=== PATIENT | male | born 1995 | race Two or more races ===

== ENCOUNTER 2017-08-04 19:41 | Emergency (ER) | payer BC, OTHER ==
[~2017-08-04] VITALS: Ht 188 cm; Wt 99.8 kg
[2017-08-04 23:30] VITALS: BP 135/94
== END 2017-08-05 01:42 | disposition home or self-care (01) ==
LOC: EDBD 19:41 → ER 19:50
DX: S06.0X1A Concussion with loss of consciousness of 30 minutes or less, initial encounter (principal); F19.10 Other psychoactive substance abuse, uncomplicated; M54.2 Cervicalgia; M54.89 Other dorsalgia; J45.909 Unspecified asthma, uncomplicated; Z88.1 Allergy status to other antibiotic agents; V43.52XA Car driver injured in collision with other type car in traffic accident, initial encounter; Y93.89 Activity, other specified; Y99.8 Other external cause status; Y92.488 Other paved roadways as the place of occurrence of the external cause
CPT/HCPCS: 70450; 71046; 72125

== ENCOUNTER 2021-06-25 23:08 | Emergency (ER) | payer OTHER ==
[~2021-06-25] VITALS: Ht 188 cm; Wt 94.3 kg
[2021-06-26 00:10] LABS: Basophils # (auto) 0 10 ^3/uL (0-0.2); Basophils % (auto) 0.4 % (0.0-2.0); Eosinophils # (auto) 0.2 10 ^3/uL (0-0.8); Eosinophils % (auto) 2.8 % (0.0-7.0); Hematocrit 43.2 % (41.0-53.0); Lymphocytes % (auto) 30.3 % (10.0-50.0); Mean Corpuscular Hemoglobin 31.5 pg (28.0-32.0); Mean Corpuscular Hgb Conc. 34.7 g/dL (32.0-36.0); Monocytes # (auto) 0.3 10 ^3/uL (0-1.3); Monocytes % (auto) 5.2 % (0.0-12.0); Neutrophils # (auto) 4.1 10 ^3/uL (1.6-8.6); Neutrophils % (auto) 61.3 % (37.0-80.0); Nucleated Red Blood Cells % 0.1 %; Red Blood Cells 4.75 10^6/uL (4.5-5.90); Red Cell Distribution Width 13.5 % (11.8-14.3); White Blood Cell 6.7 10^3/uL (4.4-10.8)
[2021-06-26 00:14] LABS: Albumin 3.9 g/dL (3.4-5.0); Anion Gap 6 (5-15); Blood Alcohol < 3.0 mg/dL (0-5); Blood Urea Nitrogen 11 mg/dL (7-18); Calcium 8.8 mg/dL (8.5-10.1); Carbon Dioxide 27 mmol/L (21-32); Chloride 106 mmol/L (98-107); Glucose 129 mg/dL (74-106); Magnesium 2.3 mg/dL (1.6-2.6); Potassium 3.5 mmol/L (3.5-5.1); Sodium 139 mmol/L (136-145)
[2021-06-26 00:15] LABS: Acetaminophen < 2.0 ug/mL (10-30); Salicylate < 1.7 mg/dL (2.8-20.0)
[2021-06-26 00:16] LABS: Alanine Aminotransferase 30 U/L (16-61); Aspartate Aminotransferase 14 U/L (15-37); BUN/Creatinine Ratio 13.1; GFR African American 146 mL/min; GFR Non-African American 120 mL/min
[2021-06-26 00:18] LABS: Alkaline Phosphatase 58 U/L (45-117); Bilirubin, Total 0.4 mg/dL (0.2-1.0); Total Protein 6.8 g/dL (6.4-8.2)
[2021-06-26 05:58] VITALS: BP 125/86
== END 2021-06-26 06:04 | disposition home or self-care (01) ==
LOC: EDBD 23:08 → EDUNIT# 23:08 → ER 23:08
DX: T43.211A Poisoning by selective serotonin and norepinephrine reuptake inhibitors, accidental (unintentional), initial encounter (principal); G47.00 Insomnia, unspecified; J45.909 Unspecified asthma, uncomplicated; Y92.89 Other specified places as the place of occurrence of the external cause
CPT/HCPCS: 36415; 80053; 80320; 80329; 83735; 84100; 85025; 93005

== ENCOUNTER → 2021-12-03 | Emergency (ER) | payer OTHER | END | disposition left against medical advice (07) | LOC: ER 19:05 | DX: B83.9 Helminthiasis, unspecified (principal); Z53.21 Procedure and treatment not carried out due to patient leaving prior to being seen by health care provider ==

== ENCOUNTER 2022-05-23 17:32 | Emergency (ER) | payer OTHER ==
[~2022-05-23] VITALS: Ht 188 cm; Wt 94.0 kg
[2022-05-23 18:00] VITALS: BP 132/88
== END 2022-05-23 20:19 | disposition home or self-care (01) ==
LOC: ER 17:32
DX: S09.90XA Unspecified injury of head, initial encounter (principal); F17.210 Nicotine dependence, cigarettes, uncomplicated; Z88.1 Allergy status to other antibiotic agents; W23.0XXA Caught, crushed, jammed, or pinched between moving objects, initial encounter; Y93.89 Activity, other specified; Y92.89 Other specified places as the place of occurrence of the external cause; Y99.0 Civilian activity done for income or pay
CPT/HCPCS: 70450

== ENCOUNTER 2025-01-12 16:06 | Emergency (ER) | payer MEDICAID, OTHER ==
[~2025-01-12] VITALS: Ht 185.4 cm; Wt 120.5 kg
[2025-01-12 16:09] VITALS: TEMP 98.3
[2025-01-12 16:36] LABS: Hematocrit 48.4 % (41.0-53.0); Hemoglobin 16.5 g/dL (13.5-17.5); Mean Corpuscular Hemoglobin 30.6 pg (28.0-32.0); Mean Corpuscular Volume 89.5 fL (80.0-100.0); Nucleated Red Blood Cells % 0.1 %
[2025-01-12 16:54] LABS: Alkaline Phosphatase 75 U/L (46-116); Anion Gap 11 (5-15); BUN/Creatinine Ratio 9.2 (10.0-20.0); Calcium 9.9 mg/dL (8.7-10.4); Carbon Dioxide 26 mmol/L (20-31); Chloride 106 mmol/L (98-107); Glucose 94 mg/dL (74-106); Magnesium 2.1 mg/dL (1.6-2.6); Potassium 3.9 mmol/L (3.5-5.1); Sodium 143 mmol/L (136-145); Total Protein 7.6 g/dL (5.7-8.2)
[2025-01-12 16:55] LABS: Bilirubin, Total 0.4 mg/dL (0.2-1.0)
[2025-01-12 16:56] LABS: Alanine Aminotransferase 86 U/L (7-40); Albumin 5.0 g/dL (3.2-4.8); Blood Urea Nitrogen 8 mg/dL (9-23)
--- NOTE | 2025-01-12 17:06 | ED.PDOC ---
History of Present Illness HPI Comments 29-year-old obese male, with a history of suicide and self-harm, presents with chief complaint of suicidal ideations, auditory hallucinations, and self-harm.. Patient reports being suicidal since January 10, 2025, following initial unprovoked onset. Endorsement of plan on ending his life via walking into oncoming traffic. Patient has pre continuous laceration lines on his right forearm from most recent attempt at harming himself. He reports being compliant with his psychiatric medications. Auditory hallucinations were reported as voices endorsing on the patient to harm himself. Denies having any homicidal ideations, visualized hallucination, or further associated symptoms. Chief Complaint: Suicidal Time Seen by MD: 16:20 Primary Care Provider: LAKISHA Boston Notes: Nurses Notes, Medications, Allergies Allergies: Coded Allergies: Amoxicillin (Verified Allergy, Unknown, 08/04/17) Uncoded Allergies: ZITHROMIACIN (Allergy, Unknown, 08/04/17) Information Source: Patient Mode of Arrival: Ambulatory Severity: Moderate Timing: Hours Duration: Since onset Prehospital treatment: None Past Medical History PAST MEDICAL HISTORY: High Lipids, HTN Past Medical History (Other): Arrhythmia Suicide ideations and attempts History of self-harm Surgical History: Denies all surgeries Family History Family History: Reviewed,noncontributory to illness Social History Smoker: Cigarettes Alcohol: Occasionally Drugs: Marijuana Lives In: Home All Other Systems: Reviewed and Negative (Comprehensive review of systems are negative unless otherwise stated in HPI) Physical Exam General Appearance: Moderate Distress HEENT: Normal ENT Inspection, Pharynx Normal, TMs Normal Neck: Full Range of Motion, Non-Tender, Normal, Normal Inspection Respiratory: Chest Non-Tender, Lungs Clear, No Accessory Muscle Use, No Respiratory Distress, Normal Breath Sounds Cardiovascular: No Edema, No JVD, No Murmur, No Gallop, Normal Peripheral Pulses, Regular Rate/Rhythm Breast Exam: Deferred Gastrointestinal: No Organomegaly, Non Tender, No Pulsatile Mass, Normal Bowel Sounds, Soft Genitalia: Deferred Pelvic: Deferred Rectal: Deferred Extremities: No calf tenderness, Normal capillary refill, Normal inspection, Normal range of motion, Non-tender, No pedal edema Musculoskeletal : Apperance: Normal Neurologic: Alert, 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 Was a procedure done?: No Differential Dx Considerations may include: Suicide, depression, hopelessness, anxiety, medication noncompliance, schizoaffective disorder, among others X-Ray, Labs, Meds, VS Vital Signs Date Time Temp Pulse Resp B/P (MAP) Pulse Ox O2 Delivery O2 Flow Rate FiO2 01/12/25 16:09 98.3 102 16 137/93 98 98.3 Lab Test 01/12/25 16:28 Range/Units White Blood Count 11.5 H 4.4-10.8 10^3/uL Red Blood Count 5.40 4.5-5.90 10^6/uL Hemoglobin 16.5 13.5-17.5 g/dL Hematocrit 48.4 41.0-53.0 % Mean Corpuscular Volume 89.5 80.0-100.0 fL Mean Corpuscular Hemoglobin 30.6 28.0-32.0 pg Mean Corpuscular Hemoglobin Concent 34.2 32.0-36.0 g/dL Red Cell Distribution Width 13.8 11.8-14.3 % Platelet Count 312 140-450 10^3/uL Mean Platelet Volume 7.4 6.9-10.8 fL Neutrophils (%) (Auto) 65.6 37.0-80.0 % Lymphocytes (%) (Auto) 25.5 10.0-50.0 % Monocytes (%) (Auto) 5.8 0.0-12.0 % Eosinophils (%) (Auto) 2.1 0.0-7.0 % Basophils (%) (Auto) 1.0 0.0-2.0 % Neutrophils # (Auto) 7.6 1.6-8.6 10 ^3/uL Lymphocytes # (Auto) 2.9 0.4-5.4 10 ^3/uL Monocytes # (Auto) 0.7 0-1.3 10 ^3/uL Eosinophils # (Auto) 0.2 0-0.8 10 ^3/uL Basophils # (Auto) 0.1 0-0.2 10 ^3/uL Nucleated Red Blood Cells 0.1 % Sodium Level 143 136-145 mmol/L Potassium Level 3.9 3.5-5.1 mmol/L Chloride Level 106 98-107 mmol/L Carbon Dioxide Level 26 20-31 mmol/L Anion Gap 11 5-15 Blood Urea Nitrogen 8 L 9-23 mg/dL Creatinine 0.87 0.700-1.30 mg/dL Glomerular Filtration Rate Calc 121 >90 mL/min BUN/Creatinine Ratio 9.2 L 10.0-20.0 Serum Glucose 94 74-106 mg/dL Calcium Level 9.9 8.7-10.4 mg/dL Magnesium Level 2.1 1.6-2.6 mg/dL Total Bilirubin 0.4 0.2-1.0 mg/dL Aspartate Amino Transferase (AST) 55 H 13-40 U/L Alanine Aminotransferase (ALT) 86 H 7-40 U/L Alkaline Phosphatase 75 46-116 U/L Total Protein 7.6 5.7-8.2 g/dL Albumin 5.0 H 3.2-4.8 g/dL Plasma/Serum Blood Alcohol Pending Patient alert pain Had scratched himself right forearm. No sutures needed. Vitals stable. Answering questions. Hemoglobin within normal limits. Neutrophils within normal limits. Was given Rocephin. Medically cleared. Psychiatric evaluation. Time of 1ST Reevaluation: 16:50 Reevaluation 1ST: Unchanged Patient Education/Counseling: Other (Need for ED observation) Family Education/Counseling: No Family Present SEPSIS Sepsis Screen Date sepsis recognized/suspect: Jan 12, 2025 Time Sepsis recognized/suspect: 1609 Recent Procedure: No On Antibiotic Therapy: No Respiratory Rate >20: No Heart Rate >90: Yes Temp<36 C (96.8 F) or >38.3 C: No SBP <90 or MAP <65 mmHG: No New Acute Mental Status Change: No Is the patient on CPAP, BIPAP,: No Physician Orders Comprehensive Metabolic Panel (01/12/25 16:18) Drug Screen (01/12/25 16:18) Blood Alcohol (01/12/25 16:18) Magnesium (01/12/25 16:18) *Tele Psych Consult (01/12/25 16:37) Vital Signs Date Time Temp Pulse Resp B/P (MAP) Pulse Ox O2 Delivery O2 Flow Rate FiO2 01/12/25 16:09 98.3 102 16 137/93 98 98.3 Laboratory Tests Test 01/12/25 16:28 White Blood Count 11.5 10^3/uL (4.4-10.8) H Departure 1 Departure Time of Disposition: 17:10 Impression: Primary Impression: Suicidal ideation Disposition: 30 STILL A PATIENT Condition: Good Critical Care Note Critical Care Time?: No Stability Stability form required: No Heart Score Heart Score: Heart Score Response (Comments) Value History N/A 0 EKG N/A 0 Age N/A 0 Risk Factors N/A 0 Troponin N/A 0 Total 0 I personally scribed for DIOGENES CHU MD ([email or web address]) on 01/12/25 at 17:06. Electronically submitted by Fabio Martinez [email or web address]). DIOGENES CHU MD Jan 12, 2025 17:06
[2025-01-12 17:32] VITALS: BP 133/88; PULSE 88; RESP 16; O2SAT 98
[2025-01-12] MEDS: cefTRIAXone SOD 1,000 MG VL IM ONE (18:53)
[2025-01-12 19:14] LABS: Amphetamine Screen, Urine Neg (NEGATIVE); Barbiturate Scree,Urine Neg (NEGATIVE); Benzodiazephine Screen, Urine Neg (NEGATIVE); Cannabinoid Screen, Urine Neg (NEGATIVE); Cocaine Screen, Urine Neg (NEGATIVE); Opiate Scree,Urine Neg (NEGATIVE); Phencyclidine Screen, Urine Neg (NEGATIVE)
--- NOTE | 2025-01-12 19:39 | DVHINCON2 ---
Date of Service if different f: Jan 12, 2025 Consultation ([place]) Labs Laboratory Tests Test 01/12/25 16:18 01/12/25 16:28 White Blood Count 11.5 10^3/uL (4.4-10.8) Red Blood Count 5.40 10^6/uL (4.5-5.90) Hemoglobin 16.5 g/dL (13.5-17.5) Hematocrit 48.4 % (41.0-53.0) Mean Corpuscular Volume 89.5 fL (80.0-100.0) Mean Corpuscular Hemoglobin 30.6 pg (28.0-32.0) Mean Corpuscular Hemoglobin Concent 34.2 g/dL (32.0-36.0) Red Cell Distribution Width 13.8 % (11.8-14.3) Platelet Count 312 10^3/uL (140-450) Mean Platelet Volume 7.4 fL (6.9-10.8) Neutrophils (%) (Auto) 65.6 % (37.0-80.0) Lymphocytes (%) (Auto) 25.5 % (10.0-50.0) Monocytes (%) (Auto) 5.8 % (0.0-12.0) Eosinophils (%) (Auto) 2.1 % (0.0-7.0) Basophils (%) (Auto) 1.0 % (0.0-2.0) Neutrophils # (Auto) 7.6 10 ^3/uL (1.6-8.6) Lymphocytes # (Auto) 2.9 10 ^3/uL (0.4-5.4) Monocytes # (Auto) 0.7 10 ^3/uL (0-1.3) Eosinophils # (Auto) 0.2 10 ^3/uL (0-0.8) Basophils # (Auto) 0.1 10 ^3/uL (0-0.2) Nucleated Red Blood Cells 0.1 % Sodium Level 143 mmol/L (136-145) Potassium Level 3.9 mmol/L (3.5-5.1) Chloride Level 106 mmol/L (98-107) Carbon Dioxide Level 26 mmol/L (20-31) Anion Gap 11 (5-15) Blood Urea Nitrogen 8 mg/dL (9-23) Creatinine 0.87 mg/dL (0.700-1.30) Glomerular Filtration Rate Calc 121 mL/min (>90) BUN/Creatinine Ratio 9.2 (10.0-20.0) Serum Glucose 94 mg/dL (74-106) Calcium Level 9.9 mg/dL (8.7-10.4) Magnesium Level 2.1 mg/dL (1.6-2.6) Total Bilirubin 0.4 mg/dL (0.2-1.0) Aspartate Amino Transf (AST/SGOT) 55 U/L (13-40) Alanine Aminotransferase (ALT/SGPT) 86 U/L (7-40) Alkaline Phosphatase 75 U/L (46-116) Total Protein 7.6 g/dL (5.7-8.2) Albumin 5.0 g/dL (3.2-4.8) Plasma/Serum Blood Alcohol < 3.0 mg/dL (<10) Appetite: Good Appearance: Stated age, Groomed Psychomotor activity: WNL Behavioral: Cooperative Eye contact: Appropriate Speech: WNL Affect: Inappropriate to mood Mood: Depressed Thought processes: Linear/Goal-directed Suicidal ideations: Present (active) Homicidal ideations: Absent Orientation: Person, Place, Time, Situation Memory intact: Recent Intellect: Average Abstractability: WNL Concentration: Adequate Attention: Adequate Judgement: Poor Insight: Fair Vitals Vital Signs Date Time Temp Pulse Resp B/P (MAP) Pulse Ox O2 Delivery O2 Flow Rate FiO2 01/12/25 17:32 88 16 98 Room Air* 0 21 01/12/25 17:32 133/88 (103) 01/12/25 16:09 98.3 98.3 Medication adjusted: No Labs ordered: No Diagnosis: unspecified mood disorder V schizoaffective disorder, depressive type Plan : patient continues to report suicidal ideation with various plans. He is unable to keep himself safe at home Recommend [id number] for DTS and transfer to inpatient psychiatric hospital Continue current psychotropic medications History of Present Illness Reason for Consult : Patient is reporting suicidal ideation HPI : This is a 29-year-old male with reported history of bipolar disorder and anxiety presents here bib family for suicidal ideation. Patient is evaluated via telepsychiatry. He reports ongoing suicidal ideation but it worsened 2 days ago after he tried to quit smoking. He started having thoughts to cut himself. He denies other triggers. He frequently hears voices which tell him or guide him to do things, such as there is a knife there, you should cut yourself. Or you should cut this vein there. He reports having suicidal thoughts one hour ago but denies now. later reports h aving thoughts to cut himself and he is not feeling safe to return home. He reports being prescribed Diamondhead and picked up today with plans to start tonight but mom saw cuts to his arm and said he had to go to the hospital. He reports having auditory and visual hallucinations on/off. He has visual hallucinations of a knife. He denies any paranoid thoughts. He denies any homicidal thoughts. He reports sleeping 12 hours at night then sleeps all day after breakfast. He reports good appetite. Past Psychiatric History : He reports 6 prior psych admissions and multiple prior suicide attempts. he had last suicide attempt via OD on trazodone one years ago. He does have outpatient mental health follow up. He has prescriptions for Prozac 60mg po daily, Trazodone 100mg qhs, Vraylar 4.5mg po qhs, Gabapentin 300mg po bid. He has not started the Diamondhead. He is complaint with his medications Past Medical History : He has hx of HTN, hyperlipidemia Social History : He lives at home with mom, stepfather, and siblings. he denies any lobbies. He is unemployed and single. He reports father has history of bipolar or schizophrenia. He reports vaping heavily, only nicotine. He had a few shots of vodka 2 night ago after cutting himself, he does not use alcohol often. He denies other substance use. UDS is pending. CAS[facility] Jan 12, 2025 19:39
== END 2025-01-13 06:40 | disposition left against medical advice (07) ==
LOC: ER 16:06
DX: R45.851 Suicidal ideations (principal); I10 Essential (primary) hypertension; E78.5 Hyperlipidemia, unspecified; F17.210 Nicotine dependence, cigarettes, uncomplicated; Z79.899 Other long term (current) drug therapy
CPT/HCPCS: 36415; 80053; 80307; 80320; 83735; 85025